=== PATIENT | female | born 1995 | race Caucasian/White ===

== ENCOUNTER → 2022-07-28 | Outpatient (CLI) | payer OTHER, MEDICAID | LOC: AMSURD 11:21 | DX: R00.1 Bradycardia, unspecified (principal) ==

== ENCOUNTER → 2024-03-12 | Outpatient (REF) | payer OTHER, MEDICAID ==
[2024-03-12 13:56] LABS: PH-URINE 8.5 (5.0 - 8.0); URINE APPEARANCE SLIGHTLY CLOUDY (CLEAR); URINE BILIRUBIN NEGATIVE (NEGATIVE); URINE BLOOD 2+ (NEGATIVE); URINE COLOR YELLOW (YELLOW); URINE GLUCOSE NEGATIVE (NEGATIVE); URINE KETONE NEGATIVE (NEGATIVE); URINE LEUKOCYTE ESTERASE 3+ (NEGATIVE); URINE MUCUS PRESENT (NOT PRESENT); URINE NITRATE POSITIVE (NEGATIVE); URINE PROTEIN(semi-quant) 1+ (NEGATIVE)
== END ==
LOC: LAB 13:29
PROVIDERS: Family Medicine
DX: R82.90 Unspecified abnormal findings in urine (principal)

== ENCOUNTER → 2024-03-16 | Outpatient (REF) | payer OTHER, MEDICAID ==
[2024-03-16 14:36] LABS: BASO # 0.01 K/mm3 (0.02-0.10); EOS # 0.03 K/mm3 (0.04-0.40); EOS % 0.5 % (1.0-5.0); HEMATOCRIT 39.4 % (37.0-47.0); HEMOGLOBIN 12.3 g/dL (12.5-16.0); LYMPH# 0.87 K/mm3 (1.50-4.00); MEAN CELL VOLUME 85 fl (78-100); MEAN CORPUSCULAR HEMOGLOBIN 26 pg (27-31); MEAN CORPUSCULAR HGB CONC 31 g/dL (33-37); MEAN PLATELET VOLUME 9.8 fl (7.4-10.4); NEU # 4.31 K/mm3 (1.40-6.50); PLATELET COUNT 222 K/mm3 (130-400); RED BLOOD COUNT 4.66 M/mm3 (4.10-5.30); RED CELL DISTRIBUTION WIDTH 11.9 % (11.5-14.5); WHITE BLOOD COUNT 5.5 K/mm3 (4.8-10.8)
[2024-03-16 14:43] LABS: ALBUMIN 4.2 g/dL (3.5-5.0); SODIUM 140 mmol/L (136-145)
[2024-03-16 14:44] LABS: CALCIUM 9.4 mg/dL (8.3-10.5)
[2024-03-16 14:46] LABS: GLUCOSE 135 mg/dL (65-105); TOTAL PROTEIN 7.4 g/dL (6.4-8.3)
[2024-03-16 14:47] LABS: CARBON DIOXIDE 26 mmol/L (22-29); TOTAL BILIRUBIN 0.2 mg/dL (0.2-1.2)
[2024-03-16 14:51] LABS: AST-SGOT 28 U/L (5-34)
[2024-03-16 14:52] LABS: ALT/SGPT 20 U/L (0-55)
== END ==
LOC: LAB 14:09
PROVIDERS: Family Medicine
DX: N30.00 Acute cystitis without hematuria (principal); L89.222 Pressure ulcer of left hip, stage 2

== ENCOUNTER 2024-03-24 13:37 | Emergency (ER) | payer OTHER, MEDICAID ==
[~2024-03-24] VITALS: Wt 39.1 kg
[2024-03-24 13:45] VITALS: BP 102/80
[2024-03-24] MEDS ORDERED: CIPRO 500M500 MG/5 M PO (14:05)
[2024-03-24] MEDS ORDERED: DIAZEPAM5 MG/5 M1 PO (14:11)
[2024-03-24] MEDS ORDERED: LORazepam 2 MG/ML VIAL IV PRN (14:15)
[2024-03-24 14:16] LABS: BASO # 0.02 K/mm3 (0.02-0.10); EOS # 0.05 K/mm3 (0.04-0.40); EOS % 0.6 % (1.0-5.0); HEMATOCRIT 42.8 % (37.0-47.0); HEMOGLOBIN 13.3 g/dL (12.5-16.0); LYMPH# 1.68 K/mm3 (1.50-4.00); MEAN CELL VOLUME 87 fl (78-100); MEAN CORPUSCULAR HEMOGLOBIN 27 pg (27-31); MEAN CORPUSCULAR HGB CONC 31 g/dL (33-37); MEAN PLATELET VOLUME 9.7 fl (7.4-10.4); MONO # 0.54 K/mm3 (0.20-0.80); NEU # 5.44 K/mm3 (1.40-6.50); PLATELET COUNT 244 K/mm3 (130-400); RED BLOOD COUNT 4.94 M/mm3 (4.10-5.30); RED CELL DISTRIBUTION WIDTH 11.8 % (11.5-14.5); WHITE BLOOD COUNT 7.7 K/mm3 (4.8-10.8)
[2024-03-24 14:23] LABS: ALBUMIN 4.6 g/dL (3.5-5.0)
[2024-03-24 14:25] LABS: CALCIUM 9.7 mg/dL (8.3-10.5)
[2024-03-24 14:26] LABS: TOTAL PROTEIN 8.1 g/dL (6.4-8.3)
[2024-03-24 14:28] LABS: TOTAL BILIRUBIN 0.2 mg/dL (0.2-1.2)
== END 2024-03-24 17:11 | disposition home or self-care (01) ==
LOC: ED 13:37
PROVIDERS: Family Medicine
DX: R45.83 Excessive crying of child, adolescent or adult (principal); R10.9 Unspecified abdominal pain; N39.0 Urinary tract infection, site not specified; K59.00 Constipation, unspecified

== ENCOUNTER → 2024-03-24 | Outpatient (CLI) | payer OTHER, MEDICAID ==
[~2024-03-24] MED LIST: CIPRO 500M500 MG/5 M PO; DIAZEPAM5 MG/5 M1 PO
== END ==
LOC: RAD 12:24
DX: M79.642 Pain in left hand (principal)

== ENCOUNTER → 2024-08-09 | Outpatient (CLI) | payer OTHER, MEDICAID ==
[2024-08-09 08:42] LABS: PH-URINE 8.5 (5.0 - 8.0); URINE APPEARANCE SLIGHTLY CLOUDY (CLEAR); URINE BILIRUBIN NEGATIVE (NEGATIVE); URINE BLOOD TRACE-INTACT (NEGATIVE); URINE COLOR YELLOW (YELLOW); URINE GLUCOSE NEGATIVE (NEGATIVE); URINE KETONE NEGATIVE (NEGATIVE); URINE LEUKOCYTE ESTERASE 1+ (NEGATIVE); URINE NITRATE NEGATIVE (NEGATIVE); URINE PROTEIN(semi-quant) 1+ (NEGATIVE); URINE WBC 16-30 /hpf (0-3)
[2024-08-09 08:43] LABS: URINE MUCUS PRESENT (NOT PRESENT)
== END ==
LOC: LAB 08:22
PROVIDERS: Family Medicine
DX: R31.9 Hematuria, unspecified (principal)